=== PATIENT | male | born 1990 | race Caucasian/White ===

== ENCOUNTER 2022-12-23 02:35 | Emergency (ER) | payer BC, SELFPAY | END 2022-12-23 15:25 | disposition home or self-care (01) | PROVIDERS: Emergency Provider Nurse Practitioner Family | DX: T63.481A Toxic effect of venom of other arthropod, accidental (unintentional), initial encounter (principal) | CPT/HCPCS: 99213; G0463 ==

== ENCOUNTER 2025-04-25 13:21 | Emergency (ER) | payer BC, SELFPAY ==
[2025-04-25 13:52] VITALS: BP 118/70; PULSE 65; RESP 16; TEMP 36.4; O2SAT 98
--- NOTE | 2025-04-25 14:42 | ED.GENADULT ---
HPI - General Adult General Chief complaint: Upper Respiratory Infection Stated complaint: Congestion/Sore Throat Time Seen by Provider: 04/25/25 14:42 Source: patient Mode of arrival: ambulatory Limitations: no limitations History of Present Illness HPI narrative: 34-year-old male patient presents to the [facility] with complaints of cold symptoms, congestion, sore throat, coughing for the past 5 days. Denies fevers states has had some body aches and chills in the beginning of the symptoms but that has since resolved. Patient states he has been taking [id number] Mucinex. Related Data Allergies Allergy/AdvReac Type Severity Reaction Status Date / Time No Known Allergies Allergy Unverified 01/16/11 14:58 Review of Systems Review of Systems: CONSTITUTIONAL: Denies fever, chills, or sweats. EYES: Denies visual changes, redness, or discharge. ENT: Positive rhinorrhea, congestion, sore throat, deniesotalgia. CARDIOVASCULAR: Denies chest pain, palpitations, or edema. RESPIRATORY: positive cough or dyspnea. GASTROINTESTINAL: Denies abdominal pain, nausea, vomiting, or diarrhea. GENITOURINARY: Denies dysuria or hematuria. SKIN: Denies rash or itching. MUSCULOSKELETAL: Denies back pain, joint pain, or myalgia. NEUROLOGIC: Denies headache, numbness, or weakness. PSYCHIATRIC: Denies anxiety or depression. [facility] Surgical History Surgical History (Updated 04/25/25 @ 14:56 by Bernadine Banuelos APRN) History of repair of anterior cruciate ligament of right knee Comments At the time of my signature I agree with nursing past medical history, surgical, social, and family history. There is no relevant family history pertinent to the presenting complaint. Exam Narrative: GENERAL: Well-appearing, well-nourished, and in no acute distress. HEAD: Normocephalic, atraumatic. EYES: PERRLA and EOMI. ENT: Nares with erythema edema noted bilaterally, no rhinorrhea or epistaxis. Mucous membranes moist. posterior pharynx with no erythema, tonsillar enlargement, exudates or lesions present. Bilateral TMs are clear no erythema or foreign bodies the canal. NECK: Supple. No lymphadenopathy CHEST: Clear to auscultation. No respiratory distress. HEART: Regular rate and rhythm. No murmur heard. Normal peripheral pulses. ABDOMEN: Soft, nontender, nondistended, normal active bowel sounds. EXTREMITIES: Normal range of motion. No edema. SKIN: Warm, dry, no rash. NEURO: No focal deficits. Alert and oriented x3. Course Course Level of Care: Express Care Visit Vital Signs Vital signs: Vital Signs Temperature 36.4 C L 04/25/25 13:52 Pulse Rate 65 04/25/25 13:52 Respiratory Rate 16 04/25/25 13:52 Blood Pressure 118/70 04/25/25 13:52 Pulse Oximetry 98 04/25/25 13:52 Temperature 36.4 C L 04/25/25 13:52 Pulse Rate 65 04/25/25 13:52 Respiratory Rate 16 04/25/25 13:52 Blood Pressure 118/70 04/25/25 13:52 Pulse Oximetry 98 04/25/25 13:52 Vital signs reviewed. MDM MDM Narrative Medical decision making narrative: Plan care patient is to discharge home with [place] help with cough since his point of care testing for strep, flu and COVID were all negative. Discussed with patient this is most likely viral and viruses can last anywhere from 5 days to 12 days. Discussed with patient if he continues to have symptoms past 2 weeks he can be seen by his primary doctor come back here for re-evaluation to see if he needs antibiotics at that time. Patient verbalized understanding denies any other questions or concerns at this time. Differential Diagnosis Differential Diagnosis: Differential diagnosis: Allergic rhinitis, chronic sinusitis, tonsillitis, acute sinusitis, infectious mononucleosis, seasonal influenza, pertussis, diphtheria, meningococcal disease, viral syndrome, viral bronchitis, RSV, COVID-19 Critical Care Time Critical Care Time Critical Care Time: No Discharge Plan Discharge Clinical Impression: Viral URI with cough Patient Disposition: Home Condition: Stable Instructions: Antibiotic Form, Viral Syndrome (ED) Additional Instructions: Viral illness may last between 7-12days; antibiotic is NOT recommended at this time. Recommend antihistamine such as Benadryl at night time and Claritin/Zyrtec/Reema during the day Cough syrup may cause drowsiness; avoid driving or take it at night time. Use inhaler as needed for cough, wheezing, shortness of breath or chest tightness. Also, recommend symptomatic treatment includes: rest, fluids, and increase humidity of the air at home. Recommend Acetaminophen or nonsteroidal anti-inflammatory agents (NSAIDs) as directed in the bottle to reduce fever and/pain/headache. Avoid smoking/second-hand smoke. Limit visits to areas with large crowds. Please schedule a follow-up visit with your personal physician for further evaluation and treatment within 3-5days. Including recheck and discussion of your blood pressure. If your symptoms persist, change or worsen significantly before you can contact your personal physician then please, without delay, go to the emergency department for further evaluation. vitamin-C 2000 mg in the a.m. and 2000 mg in p.m., vitamin D3 2000 IU daily and zinc 50 mg daily can help decrease how long you have the virus. Hot tea with honey can help with sore throat and coughing or just a spoonful of honey can help with the coughing. Patient Language: Colombian Prescriptions: New benzonatate 200 mg capsule 200 mg PO TID PRN (Reason: cough) 10 Days Qty: 30 0RF Follow-up/Referrals: PHYSICIAN,PLAYER SERVICES REPRESENTATIVE [Primary Care Provider, Internal Medicine] Time of Disposition: 14:51
[2025-04-25 14:55] LABS: EDCOVIDSCREEN Negative (Negative); EDINFLUASCREEN Negative (Negative); EDINFLUBSCREEN Negative (Negative); EDSTREPNEGPOS1 Negative (Negative)
== END 2025-04-25 14:52 | disposition home or self-care (01) ==
PROVIDERS: Emergency Provider Nurse Practitioner Family
DX: J06.9 Acute upper respiratory infection, unspecified (principal); Z20.822 Contact with and (suspected) exposure to COVID-19
CPT/HCPCS: 87081; 87426; 87804; 87880; 99213; G0463